=== PATIENT | male | born 1960 | race Caucasian/White ===

== ENCOUNTER → 2017-09-25 | Outpatient (CLI) | payer OTHER ==
[~2017-09-25] MED LIST: ASPI-496 PO; ATOR20TA9 PO; CEPH-368 PO; LISI-170 PO; TAMS0.4C2 PO
== END ==
LOC: RAD 14:49
PROVIDERS: ATTEND Internal Medicine
DX: R51 Headache (principal); I10 Essential (primary) hypertension; R07.9 Chest pain, unspecified
CPT/HCPCS: 70450

== ENCOUNTER 2018-07-11 15:59 | Observation (INO) | payer OTHER ==
[~2018-07-11] VITALS: Ht 170.2 cm; Wt 106.8 kg
[~2018-07-11 15:59] MED LIST changes: +ATOR20TA37 PO; -ATOR20TA9 PO
[2018-07-11] MEDS ORDERED: ASPIRIN 81 MG TABLET CHEW PO ONE (16:30)
[2018-07-11 17:18] LABS: BASOPHILS # (AUTO) 0.05 x10^3/uL (0-0.1); BASOPHILS % (AUTO) 1 % (0-1); EOSINOPHILS # (AUTO) 0.14 x10^3/uL (0-0.4); EOSINOPHILS % (AUTO) 2 % (1-7); LYMPHOCYTES # (AUTO) 2.66 x10^3/uL (1-3.4); LYMPHOCYTES % (AUTO) 34 % (22-44); MD NO; MEAN CORPUSCULAR HEMOGLOBIN 30.2 pg (27.5-34.5); MEAN CORPUSCULAR VOLUME 88.8 fL (81-97); MEAN PLATELET VOLUME 8.3 fL (7.4-10.4); MONOCYTES # (AUTO) 0.86 x10^3/uL (0.2-0.8); MONOCYTES % (AUTO) 11 % (2-9); NEUTROPHILS # (AUTO) 4.11 x10^3/uL (1.8-6.8); NEUTROPHILS % (AUTO) 53 % (42-75); PLATELET COUNT 238 x10^3/uL (130-400); RED BLOOD COUNT 5.02 x10^6/uL (4.38-5.82); RED CELL DISTRIBUTION WIDTH 13.6 % (9.4-14.8)
[2018-07-11 17:28] LABS: ALANINE AMINOTRANSFERASE 46 U/L (12-78); ALBUMIN 3.8 g/dL (3.4-5.0); ANION GAP 7 mmol/L (5-15); CALCIUM 8.7 mg/dL (8.5-10.1); CHLORIDE 107 mmol/L (98-107); CREATININE 1.43 mg/dL (0.7-1.3)
[2018-07-11 17:32] LABS: ALKALINE PHOSPHATASE 101 U/L (45-117); BILIRUBIN,TOTAL 0.3 mg/dL (0.2-1.0); TOTAL PROTEIN 7.7 g/dL (6.4-8.2); TROPONIN I < 0.015 ng/mL (0.000-0.045)
[2018-07-11 21:46] VITALS: BP 117/74
[2018-07-11] MEDS ORDERED: ONDANSETRON ODT 4 MG PO PRN (22:00)
[2018-07-11] MEDS ORDERED: hydrALAzine 20 MG/ML, 1ML IVPush PRN (22:00)
[2018-07-11] MEDS ORDERED: ACETAMINOPHEN 325 MG TABLET PO PRN (22:00)
[2018-07-11] MEDS ORDERED: LIDODERM 5% PATCH TD PRN (22:00)
[2018-07-11] MEDS ORDERED: DOCUSATE 100 MG CAPSULE PO PRN (22:00)
[2018-07-11] MEDS ORDERED: ASPIRIN 81 MG TABLET EC ONE (22:24)
[2018-07-11] MEDS: HEPARIN 5,000 UNITS/ML, 1ML SQ SCH (22:36)
[2018-07-11 23:37] LABS: TROPONIN I < 0.015 ng/mL (0.000-0.045)
[2018-07-12 01:26] VITALS: BP 115/71
[2018-07-12 05:13] LABS: ANION GAP 6 mmol/L (5-15); CALCIUM 8.8 mg/dL (8.5-10.1); CHLORIDE 109 mmol/L (98-107); CREATININE 1.44 mg/dL (0.7-1.3)
[2018-07-12 05:16] LABS: TROPONIN I < 0.015 ng/mL (0.000-0.045)
[2018-07-12] MEDS: HEPARIN 5,000 UNITS/ML, 1ML SQ SCH ×2 (06:06→14:08)
[2018-07-12 06:53] VITALS: BP 116/75
[2018-07-12] MEDS ORDERED: REGADENOSON 0.4 MG/5 ML SYRINGE ONE (08:01)
[2018-07-12 12:49] VITALS: BP 155/88
[2018-07-12] MEDS ORDERED: LOSA100T7 PO (13:08)
[2018-07-12] MEDS ORDERED: HYDR25TA6 PO (13:08)
[2018-07-12] MEDS ORDERED: AMLO10TA6 PO (13:08)
[2018-07-12] MEDS ORDERED: AMLODIPINE 5 MG TABLET PO SCH (14:00)
[2018-07-12] MEDS ORDERED: LOSARTAN 50MG TABLET PO SCH (14:00)
[2018-07-12] MEDS ORDERED: HYDROCHLOROTHIAZIDE 25 MG TABLET PO SCH (14:00)
[2018-07-12] MEDS ORDERED: SODIUM CHLORIDE 0.45% 1,000 ML IV SCH (16:00)
[2018-07-12] MEDS ORDERED: ASPI-496 PO (17:07)
[2018-07-12] MEDS ORDERED: ATORVASTATIN 20 MG TABLET PO SCH (21:00)
[2018-07-13] MEDS ORDERED: TAMSULOSIN 0.4 MG CAP.ER.24H PO SCH (09:00)
== END 2018-07-12 18:24 | disposition home or self-care (01) ==
LOC: ED 17:25 → EDIP 18:37 → INTOOBSV 18:37 → 5SO 19:10
PROVIDERS: ADMIT Internal Medicine; ATTEND Internal Medicine
DX: R07.89 Other chest pain (principal); E78.5 Hyperlipidemia, unspecified; I10 Essential (primary) hypertension; M79.661 Pain in right lower leg; Z82.49 Family history of ischemic heart disease and other diseases of the circulatory system; Z82.5 Family history of asthma and other chronic lower respiratory diseases; Z86.73 Personal history of transient ischemic attack (TIA), and cerebral infarction without residual deficits; Z87.891 Personal history of nicotine dependence
CPT/HCPCS: 0399T; 36415; 71046; 71275; 78452; 80048; 80053; 83880; 84484; 85025; 85379; 93005; 93017; 93306; 93971; 96372; 99284; A9502; C9898; G0378; J1644; J2785

== ENCOUNTER → 2019-06-13 | Outpatient (CLI) | payer OTHER ==
[~2019-06-13] MED LIST changes: +ALBU18HF INH; +AMLO10TA8 PO; +FINA5TAB4 PO; +HYDR25TA6 PO; +LOSA100T14 PO
[2019-06-13 10:29] LABS: BASOPHILS # (AUTO) 0.11 x10^3/uL (0-0.1); BASOPHILS % (AUTO) 2 % (0-1); EOSINOPHILS # (AUTO) 0.11 x10^3/uL (0-0.4); EOSINOPHILS % (AUTO) 2 % (1-7); LYMPHOCYTES # (AUTO) 1.71 x10^3/uL (1-3.4); LYMPHOCYTES % (AUTO) 31 % (22-44); MD NO; MEAN CORPUSCULAR HGB CONC 33.6 g/dL (33.2-36.2); MEAN CORPUSCULAR VOLUME 89.4 fL (81-97); MEAN PLATELET VOLUME 8.3 fL (7.4-10.4); MONOCYTES # (AUTO) 0.58 x10^3/uL (0.2-0.8); MONOCYTES % (AUTO) 10 % (2-9); NEUTROPHILS # (AUTO) 3.09 x10^3/uL (1.8-6.8); NEUTROPHILS % (AUTO) 55 % (42-75); PLATELET COUNT 193 x10^3/uL (130-400); RED BLOOD COUNT 4.94 x10^6/uL (4.38-5.82)
[2019-06-13 10:38] LABS: INTERNATIONAL NORMALIZED RATIO 0.97 (0.93-1.1); PROTHROMBIN TIME 10.2 Seconds (9.6-11.5)
[2019-06-13 10:39] LABS: ALANINE AMINOTRANSFERASE 56 U/L (12-78); ALBUMIN 3.8 g/dL (3.4-5.0); ANION GAP 3 mmol/L (5-15); CALCIUM 8.9 mg/dL (8.5-10.1); CHLORIDE 108 mmol/L (98-107); CREATININE 1.33 mg/dL (0.7-1.3)
[2019-06-13 10:41] LABS: ALKALINE PHOSPHATASE 98 U/L (45-117); BILIRUBIN,TOTAL 0.6 mg/dL (0.2-1.0); TOTAL PROTEIN 7.7 g/dL (6.4-8.2)
== END | disposition home or self-care (01) ==
LOC: STAR 09:27
PROVIDERS: ATTEND Urology
DX: Z01.818 Encounter for other preprocedural examination (principal); N40.0 Benign prostatic hyperplasia without lower urinary tract symptoms; Z87.891 Personal history of nicotine dependence
CPT/HCPCS: 36415; 80053; 85025; 85610; 85730; 93005

== ENCOUNTER 2019-06-18 11:44 | Inpatient (IN) | payer OTHER ==
[~2019-06-18] VITALS: Ht 168.9 cm; Wt 119.2 kg
[2019-06-18] MEDS ORDERED: LACTATED RINGERS 1,000 ML IV SCH (12:10)
[2019-06-18 12:14] VITALS: BP 153/88
[2019-06-18] MEDS ORDERED: GABAPENTIN 300 MG CAPSULE PO ONE (12:30)
[2019-06-18] MEDS ORDERED: LIDOCAINE-MPF 1%, 2ML INFIL ONE (12:30)
[2019-06-18] MEDS ORDERED: ACETAMINOPHEN 500 MG TABLET PO ONE (12:30)
[2019-06-18] MEDS ORDERED: HALOPERIDOL 5 MG/ML IV PRN (14:30)
[2019-06-18] MEDS ORDERED: PROMETHAZINE 25 MG/ML, 1ML IV PRN (14:30)
[2019-06-18] MEDS ORDERED: HYDROmorphone 2 MG/ML, 1ML IVPush PRN (14:30)
[2019-06-18] MEDS ORDERED: LABETALOL 5MG/ML, 20ML IV PRN (14:30)
[2019-06-18] MEDS ORDERED: MEPERIDINE/PF 25MG/ML,1ML IVPush PRN (14:30)
[2019-06-18] MEDS ORDERED: OXYcodone 5 MG/5 ML ORAL.SOL UDC PO PRN (14:30)
[2019-06-18] MEDS ORDERED: hydrALAzine 20 MG/ML, 1ML IV PRN (14:30)
[2019-06-18] MEDS ORDERED: FENTANYL PF 250 MCG/5ML ONE (14:31)
[2019-06-18] MEDS ORDERED: SUCCINYLCHOLINE 20 MG/ML, 10ML ONE (15:16)
[2019-06-18] MEDS ORDERED: PROPOFOL 10 MG/ML, 20ML ONE (15:16)
[2019-06-18] MEDS ORDERED: DEXAMETHASONE 4 MG/ML, 1ML ONE (15:16)
[2019-06-18] MEDS ORDERED: GLYCOPYRROLATE 0.2MG/1ML, 5ML ONE (15:16)
[2019-06-18] MEDS ORDERED: NEOSTIGMINE 1 MG/ML, 10ML ONE (15:16)
[2019-06-18] MEDS ORDERED: CEFAZOLIN 1,000 MG ONE (15:16)
[2019-06-18] MEDS ORDERED: ROCURONIUM 10MG/ML,5ML ONE (15:16)
[2019-06-18] MEDS ORDERED: ONDANSETRON 2MG/ML, 2ML ONE (15:16)
[2019-06-18] MEDS ORDERED: FENTANYL PF 100 MCG/2ML ONE (15:55)
[2019-06-18] MEDS ORDERED: OXYcodone 5 MG/5 ML ORAL.SOL UDC ONE (15:56)
[2019-06-18] MEDS: FENTANYL PF 100 MCG/2ML IV PRN ×4 (15:57→16:13)
[2019-06-18 16:43] VITALS: BP 104/66
[2019-06-18] MEDS ORDERED: ONDANSETRON 2MG/ML, 2ML IV PRN (17:00)
[2019-06-18] MEDS ORDERED: SODIUM CHLORIDE 0.9% 1,000 ML IV SCH (17:00)
[2019-06-18] MEDS ORDERED: ACETAMINOPHEN 325 MG TABLET PO PRN (17:00)
[2019-06-18] MEDS ORDERED: ALBUTEROL SULFATE 2.5 MG/3 ML NPPB PRN (17:00)
[2019-06-18] MEDS ORDERED: MORPHINE SULFATE 4 MG/ML, 1ML IV PRN (17:00)
[2019-06-18] MEDS ORDERED: HYDROcodone/APAP 5/325 TABLET PO PRN (17:00)
[2019-06-18] MEDS ORDERED: OPIUM/BELLADONNA SUPP.RECT 16.2-60 MG PR PRN (17:00)
[2019-06-18 20:12] VITALS: BP 119/68
[2019-06-18] MEDS ORDERED: ATORVASTATIN 20 MG TABLET PO SCH (21:00)
[2019-06-18] MEDS: CEFAZOLIN PMX 1GM/50ML 50 ML IVPB SCH (22:27)
[2019-06-18] MEDS ORDERED: PHEN100T90 PO (23:12)
[2019-06-18] MEDS ORDERED: FINA5TAB4 PO (23:13)
[2019-06-18] MEDS ORDERED: NITR25CA3 PO (23:14)
[2019-06-19 00:09] VITALS: BP 96/61
[2019-06-19 03:37] VITALS: BP 97/61
[2019-06-19 05:47] LABS: CHLORIDE 107 mmol/L (98-107)
[2019-06-19 05:53] LABS: ANION GAP 7 mmol/L (5-15); CALCIUM 8.6 mg/dL (8.5-10.1); CREATININE 1.45 mg/dL (0.7-1.3)
[2019-06-19] MEDS: CEFAZOLIN PMX 1GM/50ML 50 ML IVPB SCH (06:20)
[2019-06-19 07:00] VITALS: BP 109/65
[2019-06-19] MEDS ORDERED: LOSARTAN 50MG TABLET PO SCH (09:00)
[2019-06-19] MEDS ORDERED: HYDROCHLOROTHIAZIDE 25 MG TABLET PO SCH (09:00)
[2019-06-19] MEDS ORDERED: FINASTERIDE 5 MG TABLET PO SCH (09:00)
[2019-06-19] MEDS ORDERED: AMLODIPINE 5 MG TABLET PO SCH (09:00)
[2019-06-19] MEDS ORDERED: PHEN-418 PO (11:24)
[2019-06-19] MEDS ORDERED: NITR100C PO (11:25)
[2019-06-19] MEDS ORDERED: FINA5TAB4 PO (11:25)
== END 2019-06-19 12:04 | disposition home or self-care (01) | DRG 713 ==
LOC: OUT 11:44 → 4NE 16:37 → OUT 16:42 → DCLOUNGE 06-19 11:48
PROVIDERS: ADMIT Urology; ATTEND Urology
PROC: 0VT08ZZ Resection of Prostate, Via Natural or Artificial Opening Endoscopic (ICD-10-PCS; principal; 2019-06-18 15:30)
PROC: 5A09357 Assistance with Respiratory Ventilation, Less than 24 Consecutive Hours, Continuous Positive Airway Pressure (ICD-10-PCS; 2019-06-19)
DX: N40.1 Benign prostatic hyperplasia with lower urinary tract symptoms (principal); N13.8 Other obstructive and reflux uropathy; I10 Essential (primary) hypertension; E78.5 Hyperlipidemia, unspecified; G47.33 Obstructive sleep apnea (adult) (pediatric); Z86.73 Personal history of transient ischemic attack (TIA), and cerebral infarction without residual deficits
CPT/HCPCS: 36415; 80048; 85014; 85018; 88305; G0378; J0690; J1100; J2405; J2704; J2710; J3010; J0330; J2270; J7030; J7120